=== PATIENT | female | born 2000 | race American Indian/Alaskan Native ===

== ENCOUNTER 2019-06-09 04:35 | Emergency (ER) | payer MEDICAID ==
[2019-06-09 05:37] LABS: Bacteria,Urine 1+ /HPF (Negative); Bilirubin,Urine NEG (Negative); Blood,Urine LG (Negative); Color,Urine Yellow (Yellow); Mucus,Urine 1+ /HPF
[2019-06-09 06:08] LABS: Amphetamine Screen,Urine PRESUMPTIVE NEGATIVE; Benzodiazepines Screen,Urine PRESUMPTIVE NEGATIVE; Cannabinoid Screen,Urine PRESUMPTIVE NEGATIVE; Cocaine Screen,Urine PRESUMPTIVE NEGATIVE; Methadone Screen,Urine PRESUMPTIVE NEGATIVE; Opiate Screen,Urine PRESUMPTIVE NEGATIVE
[2019-06-09 06:13] LABS: BUN/Creatinine Ratio 12; Blood Urea Nitrogen 7 mg/dL (7-17); Calcium 9.3 mg/dL (8.4-10.2); Hemolysis Index 14
[2019-06-09 06:15] LABS: Basophils % (Auto) 0.3 % (0.0-1.8); Eosinophils % (Auto) 0.4 % (0.0-4.3); Hematocrit 31.7 % (30.3-42.9); Hemoglobin 10.5 gm/dl (10.1-14.3); Lymphocytes # (Auto) 1.2 K/mm3 (1.2-5.4); Lymphocytes % (Auto) 33.5 % (13.4-35.0); Mean Corpuscular HGB Conc 33 % (30-34); Mean Corpuscular Volume 92 fl (79-97); Monocytes # (Auto) 0.4 K/mm3 (0.0-0.8); Monocytes % (Auto) 10.2 % (0.0-7.3); Platelet Count 378 K/mm3 (140-440); Red Blood Count 3.47 M/mm3 (3.65-5.03); Red Cell Distribution Width 17.8 % (13.2-15.2)
--- NOTE | 2019-06-09 07:35 | Emergency Department Report ---
ED General Adult HPI - General Chief complaint: Psych Stated complaint: POORNIMA EVHAM Time Seen by Provider: 06/09/19 06:36 Source: patient Mode of arrival: Ambulatory Limitations: No Limitations - History of Present Illness Initial comments: Patient reports she was walking outside in [facility] at approximately 0530. Reports she was walking back to [facility] which she reports takes about 1 day in distance. Patient reports she was picked up by police for medical evaluation. Reports hx of depression, anxiety, and schizophrenia. Denies SI/HI. Denies trauma. Denies pain. Denies alcohol/drugs. -: hour(s) Severity scale (0 -10): 0 Improves with: none Worsens with: none Associated Symptoms: denies other symptoms - Related Data Home Medications Medication Instructions Recorded Confirmed Last Taken Mirtazapine [Remeron] 30 mg PO DAILY 10/11/16 10/11/16 Unknown risperiDONE [RisperDAL] 1 mg PO QHS 10/11/16 10/11/16 Unknown risperiDONE [RisperDAL] 1.25 mg PO QAM 10/11/16 10/11/16 Unknown Allergies Allergy/AdvReac Type Severity Reaction Status Date / Time No Known Allergies Allergy Verified 10/11/16 01:17 ED Review of Systems ROS: Stated complaint: EVAL Other details as noted in HPI Other: GENERAL: No weight change, fatigue, weakness, fever, chills, or night sweats SKIN: No changes in skin or hair, no itching, no rashes, no jaundice HEAD: No trauma, headache, or visual changes EYES: No blurriness, tearing, itching, acute visual loss, conjunctival discoloration, or scleral icterus EARS: No hearing loss, tinnitus, vertigo, or earache NOSE: No rhinorrhea, stuffiness, sneezing, itching, or epistaxis MOUTH: No bleeding gums, hoarseness, sore throat, or swelling CARDIAC: No new murmur, chest pain, palpitations, dyspnea on exertion, orthopnea, PND, or edema RESPIRATORY: No shortness of breath, wheeze, cough, sputum production, hemoptysis, pneumonia, asthma, bronchitis, or emphysema GI: No change in appetite, nausea, vomiting, dysphagia, change in bowel frequency, diarrhea, constipation, bleeding, hematemesis, melena, hematochezia, or abdominal pain URINARY: No frequency, urgency, polyuria, dysuria, hematuria, or incontinence GENITAL: Male: No penile discharge, testicular pain, testicular masses, or hernia Female: No change in menstrual regularity, no frequency or dysmenorrhea MUSCULOSKELETAL: No muscle weakness, joint stiffness, decrease in range of motion, redness, swelling NEUROLOGIC: No loss of sensation, numbness, tingling, tremors, weakness, paralysis, seizures HEMATOLOGIC: No anemia, easy bruising, bleeding, petechiae, or purpura ENDOCRINE: No hot or cold intolerance, sweating, polyuria, polydipsia or, polyphagia no thyroid problems PSYCHIATRIC: No change in mood, no anxiety, no depression ED Past Medical Hx - Past Medical History Previous Medical History?: Yes Hx Psychiatric Treatment: Yes (schizo) - Surgical History Past Surgical History?: No - Social History Smoking Status: Never Smoker Substance Use Type: None - Medications Home Medications: Home Medications Medication Instructions Recorded Confirmed Last Taken Type Mirtazapine [Remeron] 30 mg PO DAILY 10/11/16 10/11/16 Unknown History risperiDONE [RisperDAL] 1 mg PO QHS 10/11/16 10/11/16 Unknown History risperiDONE [RisperDAL] 1.25 mg PO QAM 10/11/16 10/11/16 Unknown History ED Physical Exam - General Limitations: No Limitations - Other Other exam information: GENERAL: Patient in no acute distress HEAD: Normocephalic, atraumatic EYES: PERRLA, EOM intact, no scleral icterus, no papilledema, no conjunctival hemorrhage, visual mccarthy and acuity wnl, EARS: No tenderness, discharge, tympanic membrane wnl NOSE: No tenderness, discharge, sinus tenderness MOUTH: No erythema, bleeding, exudate HEART: Regular rate and rhythm, no murmur, S1-S2 are auscultated, pulses are symmetric LUNGS: No wheezing, rales, rhonchi, bilateral breath sounds ABDOMEN: Normal bowel sounds, no tenderness, no rebound, no guarding, no masses, no CVA tenderness GENITOURINARY: Male: No rashes, ulcers, discharge, no scrotal masses, no hernia Female: External genitalia wnl. Cervix shows no discharge, bleeding, internal os closed. No adnexal tenderness, or mass MUSCULOSKELETAL: Normal joint range of motion, no redness, no swelling, no tenderness NEUROLOGIC: GCS 15, Alert and Oriented x3, Cranial nerves intact, normal sensation, normal strength, normal gait, no cerebellar deficit PSYCHIATRIC: No homicidal or suicidal ideation, no anxiety, no depression, no hallucinations SKIN: Skin is warm and dry, no wounds, no rashes ED Course Vital Signs 06/09/19 06/09/19 06/09/19 04:39 04:48 05:25 Temperature 98.2 F 98.2 F Pulse Rate 105 H 106 H Respiratory 18 18 17 Rate Blood Pressure 121/77 121/77 Blood Pressure [Right] O2 Sat by Pulse 100 100 Oximetry 06/09/19 06/09/19 06:16 10:00 Temperature 98.2 F Pulse Rate 84 72 Respiratory 18 16 Rate Blood Pressure Blood Pressure 110/62 125/78 [Right] O2 Sat by Pulse 100 Oximetry ED Medical Decision Making - Lab Data Result diagrams: 06/09/19 05:31 06/09/19 05:31 Laboratory Results - last 24 hr 06/09/19 06/09/19 06/09/19 05:18 05:18 05:31 WBC 3.5 L RBC 3.47 L Hgb 10.5 Hct 31.7 MCV 92 MCH 30 MCHC 33 RDW 17.8 H Plt Count 378 Lymph % (Auto) 33.5 [place] % (Auto) 10.2 H Eos % (Auto) 0.4 Baso % (Auto) 0.3 Lymph # 1.2 [place] # 0.4 Eos # 0.0 Baso # 0.0 Seg Neutrophils % 55.6 Seg Neutrophils # 1.9 Sodium Potassium Chloride Carbon Dioxide Anion Gap BUN Creatinine Estimated GFR BUN/Creatinine Ratio Glucose Calcium HCG, Qual Urine Color Yellow Urine Turbidity Cloudy Urine pH 5.0 Ur Specific [place] 1.025 Urine Protein 30 mg/dl Urine Glucose (UA) Neg Urine Ketones 80 Urine Blood Lg Urine Nitrite Neg Urine Bilirubin Neg Urine Urobilinogen 2.0 Ur Leukocyte Esterase Sm Urine WBC (Auto) 8.0 H Urine RBC (Auto) 18.0 U Epithel Cells (Auto) 26.0 H Urine Bacteria (Auto) 1+ Urine Mucus 1+ Salicylates Urine Opiates Screen Presumptive negative Urine Methadone Screen Presumptive negative Acetaminophen Ur Barbiturates Screen Presumptive negative Ur Phencyclidine Scrn Presumptive negative Ur Amphetamines Screen Presumptive negative U Benzodiazepines Scrn Presumptive negative Urine Cocaine Screen Presumptive negative U Marijuana (THC) Screen Presumptive negative Drugs of Abuse Note Disclamer Plasma/Serum Alcohol 06/09/19 06/09/19 06/09/19 05:31 05:31 05:31 WBC RBC Hgb Hct MCV MCH MCHC RDW Plt Count Lymph % (Auto) [place] % (Auto) Eos % (Auto) Baso % (Auto) Lymph # [place] # Eos # Baso # Seg Neutrophils % Seg Neutrophils # Sodium 140 Potassium 3.5 L Chloride 103.1 Carbon Dioxide 23 Anion Gap 17 BUN 7 Creatinine 0.6 L Estimated GFR > 60 BUN/Creatinine Ratio 12 Glucose 99 Calcium 9.3 HCG, Qual Urine Color Urine Turbidity Urine pH Ur Specific [place] Urine Protein Urine Glucose (UA) Urine Ketones Urine Blood Urine Nitrite Urine Bilirubin Urine Urobilinogen Ur Leukocyte Esterase Urine WBC (Auto) Urine RBC (Auto) U Epithel Cells (Auto) Urine Bacteria (Auto) Urine Mucus Salicylates < 0.3 L Urine Opiates Screen Urine Methadone Screen Acetaminophen < 5.0 L Ur Barbiturates Screen Ur Phencyclidine Scrn Ur Amphetamines Screen U Benzodiazepines Scrn Urine Cocaine Screen U Marijuana (THC) Screen Drugs of Abuse Note Plasma/Serum Alcohol 06/09/19 07 05:31 05:31 WBC RBC Hgb Hct MCV MCH MCHC RDW Plt Count Lymph % (Auto) [place] % (Auto) Eos % (Auto) Baso % (Auto) Lymph # [place] # Eos # Baso # Seg Neutrophils % Seg Neutrophils # Sodium Potassium Chloride Carbon Dioxide Anion Gap BUN Creatinine Estimated GFR BUN/Creatinine Ratio Glucose Calcium HCG, Qual Negative Urine Color Urine Turbidity Urine pH Ur Specific [place] Urine Protein Urine Glucose (UA) Urine Ketones Urine Blood Urine Nitrite Urine Bilirubin Urine Urobilinogen Ur Leukocyte Esterase Urine WBC (Auto) Urine RBC (Auto) U Epithel Cells (Auto) Urine Bacteria (Auto) Urine Mucus Salicylates Urine Opiates Screen Urine Methadone Screen Acetaminophen Ur Barbiturates Screen Ur Phencyclidine Scrn Ur Amphetamines Screen U Benzodiazepines Scrn Urine Cocaine Screen U Marijuana (THC) Screen Drugs of Abuse Note Plasma/Serum Alcohol < 0.01 - Medical Decision Making Patient comfortable. Updated with results. Mental behavioral health evaluated patient and reports patient clear for discharge with outpatient follow up. Plan discharge with outpatient follow up. Return if any worsening. Critical care attestation.: If time is entered above; I have spent that time in minutes in the direct care of this critically ill patient, excluding procedure time. ED Disposition Clinical Impression: Encounter for medical screening examination Disposition: DC-01 TO HOME OR SELFCARE Is pt being admited?: No Condition: Stable Instructions: Schizophrenia (ED) Referrals: LIZBETH GAUTHIER MD [Primary Care Provider] - 2-3 Days [facility] [Outside] - 2-3 Days Time of Disposition: 07:35
[2019-06-09 12:20] VITALS: BP 125/78
== END 2019-06-09 12:00 | disposition home or self-care (01) ==
LOC: ED 04:35 → EEVIPCON 04:35 → ED 12:00
DX: Z00.00 Encounter for general adult medical examination without abnormal findings (principal); F32.9 Major depressive disorder, single episode, unspecified; F41.9 Anxiety disorder, unspecified; F20.9 Schizophrenia, unspecified; Z79.899 Other long term (current) drug therapy
CPT/HCPCS: 36415; 80048; 80307; 81001; 84703; 85025; 99284; G0480; 80320

== ENCOUNTER 2020-04-27 08:56 | Outpatient (CLI) | payer MEDICAID ==
[2020-04-27 10:48] VITALS: BP 118/71
== END 2020-04-27 12:00 | disposition home or self-care (01) ==
LOC: TRG 08:56 → APU 08:57 → TRG 12:00
PROVIDERS: ATTEND Obstetrics & Gynecology
DX: O47.1 False labor at or after 37 completed weeks of gestation (principal); Z3A.39 39 weeks gestation of pregnancy
CPT/HCPCS: 59025

== ENCOUNTER 2021-04-17 01:58 | Outpatient (CLI) | payer MEDICAID ==
[2021-04-17 03:47] VITALS: BP 105/61
== END 2021-04-17 03:40 | disposition home or self-care (01) ==
LOC: TRG 01:58 → APU 02:37 → TRG 03:40
PROVIDERS: ATTEND Obstetrics & Gynecology
DX: O46.93 Antepartum hemorrhage, unspecified, third trimester (principal); R10.2 Pelvic and perineal pain; Z3A.30 30 weeks gestation of pregnancy
CPT/HCPCS: 59025

== ENCOUNTER 2021-06-30 07:00 | Inpatient (IN) | payer MEDICAID ==
[2021-06-30] MEDS ORDERED: METHYLERGONOVINE MALEATE 0.2 MG/ML VIAL IM PRN ×2 (07:31→08:30)
[2021-06-30] MEDS ORDERED: fentaNYL 100 MCG/2 ML INJ IV PRN ×2 (07:31→08:30)
[2021-06-30] MEDS ORDERED: ACETAMINOPHEN 325 MG TAB PO PRN ×2 (07:31→08:30)
[2021-06-30] MEDS ORDERED: CARBOPROST TROMETHAMINE 250 MCG/1 ML INJ IM PRN ×2 (07:31→08:02)
[2021-06-30] MEDS ORDERED: TERBUTALINE 1 MG/1 ML INJ SUB-Q PRN ×2 (07:31→08:02)
[2021-06-30] MEDS ORDERED: AMPICILLIN/NS 2 GM/100 ML 2 GM/100 ML BAG IV ONE ×2 (07:31→08:24)
[2021-06-30] MEDS ORDERED: miSOPROStol 200 MCG TAB PR PRN ×2 (07:31→08:02)
[2021-06-30] MEDS ORDERED: LOPERAMIDE 2 MG CAP PO PRN ×2 (07:31→08:02)
[2021-06-30] MEDS ORDERED: OXYTOCIN 10 UNIT/1 ML INJ IM PRN ×2 (07:31→08:02)
[2021-06-30] MEDS ORDERED: LIDOCAINE (2%) 20 MG/1 ML VIAL 20 ML MDV INFILTRATI NR ×2 (07:31→08:02)
[2021-06-30] MEDS ORDERED: ePHEDrine SULFATE 50 MG/1 ML INJ IV PRN ×3 (07:31→10:20)
[2021-06-30] MEDS ORDERED: LACTATED RINGERS 1,000 ML IV SCH ×2 (08:00→08:30)
[2021-06-30] MEDS ORDERED: BUTORPHANOL 2 MG/1 ML INJ IV PRN ×4 (08:00→09:30)
[2021-06-30] MEDS ORDERED: OXYTOCIN DRIP 30 UNITS/500 ML BAG IV SCH ×4 (08:00→09:00)
[2021-06-30] MEDS ORDERED: AMPICILLIN/NS 2 GM/100 ML 2 GM/100 ML BAG IV NR (08:24)
[2021-06-30] MEDS ORDERED: NalbUPHINE 10 MG/1 ML INJ IV PRN (08:30)
[2021-06-30] MEDS ORDERED: ONDANSETRON 4 MG/2 ML INJ IV PRN (08:30)
--- NOTE | 2021-06-30 08:43 | History and Physical Report ---
History of Present Illness Date of examination: 06/30/21 Date of admission: 06/30/2021 Chief complaint: Frequent painful ctxs History of present illness: 21 yo, , initiated care with [facility] at 19.6 weeks and only completed that one visit throughout the entire . Presents to [facility] with reports of frequent painful ctx. Was found to have advanced cervical dilation of 6 cms with a bulging bag of fluids. Reports +FM. Denies VB or LOF. Labs: O+, antibody unknown, GC/Chlamydia negative (12/19/20) Past History Past Medical History: asthma, other (ADHD; Autism; Biplar; Psychosis; Schizophrenia) Past Surgical History: no surgical history Family/Genetic History: other (Epilepsy) Social history: single, lives with family, full code. denies: smoking, alcohol abuse, prescription drug abuse - Obstetrical History Expected Date of Delivery: 07/01/21 Actual Gestation: 39 Week(s) 6 Day(s) : 2 Para: 1 Hx # Term Pregnancies: 1 Number of Pregnancies: 0 Spontaneous Abortions: 0 Induced : 0 Number of Living Children: 1 #1 Infant Gender: Female year: 2[age][birth year] Birthweight: 4.082 kg Method of Delivery: Vaginal Gestational age at delivery: 40 Complications: none Medications and Allergies Allergies Allergy/AdvReac Type Severity Reaction Status Date / Time mint AdvReac Severe Swelling Uncoded 04/09/20 18:54 onions AdvReac Severe Swelling Uncoded 04/09/20 18:54 pineapple AdvReac Severe Swelling Uncoded 04/09/20 18:54 Home Medications Medication Instructions Recorded Confirmed Last Taken Type Mirtazapine [Remeron] 30 mg PO DAILY 10/11/16 10/11/16 Unknown History risperiDONE [RisperDAL] 1 mg PO QHS 10/11/16 10/11/16 Unknown History risperiDONE [RisperDAL] 1.25 mg PO QAM 10/11/16 10/11/16 Unknown History Active Meds: Active Medications Acetaminophen (Acetaminophen 325 Mg Tab) 650 mg PO Q4H PRN PRN Reason: Pain, Mild (1-3) Butorphanol Tartrate (Butorphanol 2 Mg/1 Ml Inj) 2 mg IV Q2H PRN PRN Reason: Pain , Severe (7-10) Carboprost Tromethamine (Carboprost Tromethamine 250 Mcg/1 Ml Inj) 250 mcg IM ONCE PRN PRN Reason: Uterine Bleeding Stop: 07/01/21 08:01 Ephedrine Sulfate (Ephedrine Sulfate 50 Mg/1 Ml Inj) 10 mg IV Q2M PRN PRN Reason: Hypotension Fentanyl (Fentanyl 100 Mcg/2 Ml Inj) 100 mcg IV Q2H PRN PRN Reason: Pain,Severe (7-10) LABOR PAIN Oxytocin/Sodium Chloride (Pitocin/Ns 30 Unit/500ml) 30 units in 500 mls @ 2 mls/hr IV TITR MAGDIEL; Protocol Lactated Ringer's (Lactated Ringers) 1,000 mls @ 125 mls/hr IV DIRECT MAGDIEL Oxytocin/Sodium Chloride (Pitocin/Ns 30 Unit/500ml) 30 units in 500 mls @ 40 mls/hr IV TITR MAGDIEL; Protocol Ampicillin Sodium (Ampicillin/Ns 1 Gm/50 Ml) 1 gm in 50 mls @ 100 mls/hr IV Q4H MAGDIEL; Protocol Ampicillin Sodium (Ampicillin/Ns 2 Gm/100 Ml) 2 gm in 100 mls @ 100 mls/hr IV ONCE ONE; Protocol Stop: 06/30/21 09:23 Lidocaine (Lidocaine (2%) 20 Mg/1 Ml Vial 20 Ml Mdv) 20 ml INFILTRATI ONCE NR Stop: 06/30/21 11:00 Loperamide HCl (Loperamide 2 Mg Cap) 2 mg PO ONCE PRN PRN Reason: give with Hemabate Stop: 07/01/21 08:01 Methylergonovine Maleate (Methylergonovine Maleate 0.2 Mg/Ml Vial) 0.2 mg IM ONCE PRN PRN Reason: Uterine Bleeding Mineral Oil (Mineral Oil 30 Ml Oral Liqd) 30 ml PO QHS PRN PRN Reason: Constipation Misoprostol (Misoprostol 200 Mcg Tab) 800 mcg PA ONCE PRN PRN Reason: Uterine Bleeding Stop: 07/01/21 08:01 Nalbuphine HCl (Nalbuphine 10 Mg/1 Ml Inj) 10 mg IV Q2H PRN PRN Reason: Pain, Moderate (4-6) Ondansetron HCl (Ondansetron 4 Mg/2 Ml Inj) 4 mg IV Q8H PRN PRN Reason: Nausea And Vomiting Oxytocin (Oxytocin 10 Unit/1 Ml Inj) 10 unit IM ONCE PRN PRN Reason: Uterine Bleeding Stop: 07/01/21 08:01 Terbutaline Sulfate (Terbutaline 1 Mg/1 Ml Inj) 0.25 mg SUB-Q ONCE PRN PRN Reason: Hyperstimulation/Hypertonicity Stop: 07/01/21 08:01 Review of Systems All systems: negative Genitourinary: contractions - Vital Signs Vital signs: Vital Signs Pulse BP 102 H 106/75 06/30/21 07:33 06/30/21 07:33 Temp Pulse Resp BP Pulse Ox 97.6 F 74 16 114/56 97 06/30/21 07:53 06/30/21 08:29 06/30/21 07:53 06/30/21 07:48 06/30/21 08:29 - Physical Exam Breasts: Positive: normal Cardiovascular: Normal S1 Lungs: Positive: Normal air movement Abdomen: Positive: other (gravid) Genitourinary (Female): Positive: normal external genitalia Vagina: Positive: other (bloody show) Uterus: Positive: enlarged (S=D) - Obstetrical FHR: category 1 Uterine Contraction Monitor Mode: External Cervical Dilatation: 6 (bulging bag) Cervical Effacement Percentage: 60 station: -1 Uterine Contraction Frequency (min): 2-4 Uterine Contraction Pattern: Irregular Uterine Tone Measurement Phase: Resting Uterine Contraction Intensity: Moderate Results All other labs normal. Assessment and Plan - Patient Problems (1) Active labor at term Current Visit: Yes Status: Acute Plan to address problem: Admit to L&D lab panel Epidural as desired Anticipate (2) History of inadequate care Current Visit: Yes Status: Acute (3) GBS screening not performed Current Visit: Yes Status: Acute
[2021-06-30 09:16] LABS: Hemoglobin 7.4 gm/dl (10.1-14.3); Mean Corpuscular HGB Conc 32 % (30-34); Mean Corpuscular Volume 73 fl (79-97); Platelet Count 203 K/mm3 (140-440); Red Blood Count 3.17 M/mm3 (3.65-5.03)
[2021-06-30 09:21] LABS: Red Cell Distribution Width 21.5 % (13.2-15.2)
[2021-06-30] MEDS ORDERED: NALOXONE 2 MG/2 ML INJ IV PRN (10:20)
--- NOTE | 2021-06-30 10:39 | Procedure Note ---
OB Delivery Note - Delivery Date of Delivery: 06/30/21 (1018) Surgeon: ARELY PIERRE (CNM) Estimated blood loss: 300cc - Vaginal Delivery presentation: vertex Delivery position: OA (NACHO) Intrapartum events: meconium (term) Delivery induction: none Delivery augmentation: rupture of membranes (AROM @ 1015) Delivery monitor: external FHT, external uterine Route of delivery: Delivery placenta: spontaneous (lin, 1022) Delivery cord: 3 umbilical vessels Episiotomy: none Delivery laceration: none Anesthesia: epidural Delivery comments: of viable, crying female infant placed directly to maternal abdomen. Cord double clamped, cut by FOB after cessation of pulsation. Cord blood collected sent to lab. Placenta spontaneously delivered, disposed per hospital policy. Uterus firm @ U-2, hemostasis maintained. Perineum intact. Mother and baby safe, stable and left in care of RN. - A at 1 minute: 8 at 5 minutes: 9 Infant Gender: Female (Weight: 2960 gms (6lbs 8 ozs) 20 inches)
[2021-06-30 10:58] LABS: Hepatitis C Virus Antibody Non-Reactive (NonReactive)
[2021-06-30] MEDS ORDERED: LANOLIN/ZINC/DIMETHICONE (LANSINOH) 7 GM TP PRN (11:00)
[2021-06-30] MEDS ORDERED: fentaNYL-BUPIV 2 MCG/ML-0.125% 200 MCG/100 ML BAG EPIDURAL SCH (11:00)
[2021-06-30] MEDS ORDERED: WITCH HAZEL/ GLYCERIN PAD TP PRN (11:00)
[2021-06-30] MEDS ORDERED: diphenhydrAMINE 25 MG CAP PO PRN (11:00)
[2021-06-30] MEDS ORDERED: PROMETHAZINE 25 MG TAB PO PRN (11:30)
[2021-06-30] MEDS ORDERED: oxyCODONE /ACETAMINOPHEN 5-325MG TAB PO PRN (11:30)
[2021-06-30] MEDS ORDERED: PHYTONADIONE 1 MG/0.5 ML *NICU*INJ ONE (12:05)
[2021-06-30] MEDS ORDERED: AMPICILLIN/NS 1 GM/50 ML 1 GM/50 ML BAG IV SCH (13:00)
[2021-06-30] MEDS ORDERED: AMMONIA INHALANT IH ONE (13:28)
[2021-06-30] MEDS: IBUPROFEN 600 MG TAB PO SCH ×2 (18:52→23:15)
[2021-06-30 18:54] LABS: Hematocrit 19.5 % (30.3-42.9); Hemoglobin 5.9 gm/dl (10.1-14.3)
[2021-06-30] MEDS ORDERED: SODIUM CHLORIDE 0.9% 500 ML 500 ML IV SCH (19:13)
[2021-06-30] MEDS ORDERED: diphenhydrAMINE 50 MG CAP PO ONE (20:00)
[2021-06-30] MEDS ORDERED: ACETAMINOPHEN 325 MG TAB PO ONE (20:00)
[2021-06-30] MEDS ORDERED: MAGNESIUM HYDROXIDE (MOM) ORAL LIQD UDC PO PRN (22:00)
[2021-06-30] MEDS ORDERED: MINERAL OIL 30 ML ORAL LIQD PO PRN ×2 (22:00)
[2021-07-01] MEDS: IBUPROFEN 600 MG TAB PO SCH ×4 (05:38→23:50)
--- NOTE | 2021-07-01 08:03 | Progress Note ---
Assessment and Plan - Patient Problems (1) History of inadequate care Current Visit: Yes Status: Acute (2) Status post normal vaginal delivery Current Visit: Yes Status: Acute Plan to address problem: Continue routine PP orders Anticipate d/c home tomorrow if stable (3) Severe anemia Current Visit: Yes Status: Acute Plan to address problem: S/P 2 units PRBCs last night Repeat H/H pending Continue daily oral iron supplementation as directed Increase iron rich foods into diet Subjective - Subjective Date of service: 07/01/21 Principal diagnosis: S/P ; severe anemia Interval history: 21 yo, , initiated care with [facility] at 19.6 weeks and only completed that one visit throughout the entire . Presents to [facility] with reports of frequent painful ctx. Was found to have advanced cervical dilation of 6 cms with a bulging bag of fluids. Reports +FM. Denies VB or LOF. Labs: O+, antibody unknown, GC/Chlamydia negative (12/19/20) Patient reports: appetite normal, voiding normally, pain well controlled, flatus, no ambulating normally (pt is unstable on her feet, advised to call for assitance prior to ambulating) : doing well, bottle feeding Objective - Vital Signs Latest vital signs: Vital Signs Temp Pulse Resp BP BP Pulse Ox Pulse Ox 07/01/21 05:35 98 07/01/21 03:15 98 07/01/21 02:15 98.4 F 63 18 114/62 100 07/01/21 01:45 98.3 F 76 18 110/73 100 07/01/21 01:15 98.2 F 84 18 114/70 100 100 07/01/21 00:30 97.8 F 72 18 110/60 110/60 95 07/01/21 00:00 98.6 F 67 18 110/67 100 06/30/21 23:30 98.4 F 67 18 106/67 100 06/30/21 23:15 100 06/30/21 23:00 98.3 F 60 18 107/60 100 06/30/21 22:30 98.8 F 77 18 122/52 100 06/30/21 22:00 98.5 F 66 18 107/62 100 06/30/21 21:45 98.8 F 68 18 116/68 100 100 06/30/21 21:42 98.8 F 68 18 116/68 06/30/21 21:12 98.4 F 70 18 119/64 100 06/30/21 20:00 100 06/30/21 18:07 98 06/30/21 16:06 98 06/30/21 16:00 97.6 F 69 16 116/50 06/30/21 14:03 98 06/30/21 12:15 98 06/30/21 11:50 59 L 97 06/30/21 11:45 59 L 97 06/30/21 11:41 58 L 125/86 06/30/21 11:40 63 97 06/30/21 11:35 65 97 06/30/21 11:30 67 97 06/30/21 11:27 65 123/84 06/30/21 11:25 64 97 06/30/21 11:20 69 98 06/30/21 11:19 69 93 06/30/21 11:15 74 95 06/30/21 11:12 72 132/60 06/30/21 11:11 65 94 06/30/21 11:10 63 97 06/30/21 11:05 74 97 06/30/21 11:03 79 92 06/30/21 11:00 79 97 06/30/21 10:56 81 111/79 90 06/30/21 10:55 75 96 06/30/21 10:50 76 97 06/30/21 10:45 80 96 06/30/21 10:41 83 99/53 85 06/30/21 10:40 83 96 06/30/21 10:35 85 97 06/30/21 10:30 84 97 06/30/21 10:29 86 93 06/30/21 10:26 69 118/55 06/30/21 10:25 74 97 06/30/21 10:23 67 114/54 93 06/30/21 10:20 73 97 06/30/21 10:15 81 97 06/30/21 10:13 68 92 06/30/21 10:10 75 96 06/30/21 10:09 63 156/73 06/30/21 10:05 99 H 140/72 97 06/30/21 10:00 115 H 98 06/30/21 09:57 104 H 137/65 06/30/21 09:55 121 H 95 06/30/21 09:51 103 H 140/60 06/30/21 09:50 121 H 94 06/30/21 09:44 111 H 99 06/30/21 09:39 107 H 96 06/30/21 09:34 79 99 06/30/21 09:33 117 H 93 06/30/21 09:29 77 98 06/30/21 09:24 70 95 06/30/21 09:19 88 93 06/30/21 09:18 72 93 06/30/21 09:14 77 97 06/30/21 09:13 96 H 92 06/30/21 09:09 103 H 95 06/30/21 09:07 96 H 93 06/30/21 09:04 90 93 06/30/21 09:02 91 H 93 06/30/21 09:00 16 06/30/21 08:59 67 97 06/30/21 08:58 96 H 112/83 06/30/21 08:56 81 92 06/30/21 08:54 110 H 97 06/30/21 08:49 110 H 96 06/30/21 08:48 69 93 06/30/21 08:44 90 96 06/30/21 08:42 68 88 06/30/21 08:39 71 96 06/30/21 08:36 106 H 94 06/30/21 08:34 89 95 06/30/21 08:29 74 97 06/30/21 08:24 83 97 06/30/21 08:19 73 97 06/30/21 08:14 96 H 98 06/30/21 08:09 83 98 06/30/21 08:04 83 93 06/30/21 08:00 98 06/30/21 07:59 89 97 Intake and Output 06/30/21 06/30/21 07/01/21 15:59 23:59 07:59 Intake Total 640 240 Output Total 800 600 Balance -800 40 240 Intake: Oral 640 Intake, Free Water 240 Blood Product 0 0 Leukoreduced Rbc Part 2 0 0 Unit [id number] Leukoreduced Rbc Part 2 0 Unit [id number] Output: Urine 800 600 Void 800 600 Other: Total, Intake Amount 320 Total, Output Amount 800 600 # Voids Void 3 1 Estimated Blood Loss 300 - Exam Breasts: Present: normal Cardiovascular: Present: Regular rate Lungs: Present: Normal air movement Abdomen: Present: soft Uterus: Present: firm, fundal height below umbilicus (U-3) Extremities: Present: normal Deep Tendon Reflex Grade: Normal +2 - Labs Labs: Abnormal lab results 06/30/21 06/30/21 06/30/21 Range/Units 08:54 08:54 18:28 RBC 3.17 L (3.65-5.03) M/mm3 Hgb 7.4 L 5.9 L* (10.1-14.3) gm/dl Hct 23.0 L 19.5 L* (30.3-42.9) % MCV 73 L (79-97) fl MCH 23 L (28-32) pg RDW 21.5 H (13.2-15.2) % Crossmatch See Detail
[2021-07-01 09:16] LABS: Hematocrit 24.8 % (30.3-42.9); Hemoglobin 8.1 gm/dl (10.1-14.3)
[2021-07-01] MEDS: PRENATAL VIT27-FE FUMARATE-FOLIC ACID VIT TAB PO SCH (10:26)
[2021-07-01] MEDS: FERROUS SULFATE 325 MG TAB PO SCH ×2 (10:26→22:20)
--- NOTE | 2021-07-01 12:49 | Post Anesthesia Evaluation ---
- Post Anesthesia Evaluation Patient Participated: Yes Airway Patent: Yes Stable Respiratory Function: Yes Nausea/Vomiting: No Temp > 96.8F: Yes Pain Manageable: Yes Adequeate Hydration: Yes Anesthesia Complications: No Block Receding Appropriately: Yes
[2021-07-02] MEDS: IBUPROFEN 600 MG TAB PO SCH (06:05)
--- NOTE | 2021-07-02 08:31 | Progress Note ---
Assessment and Plan A: PPD#2 s/p at term Anemia s/p 2 units PRBCs Insufficient Care P: Routine care Discharge today with follow up in 4 wks Subjective - Subjective Date of service: 07/02/21 Principal diagnosis: S/P ; severe anemia Interval history: No overnight events. Pt feeling well. Patient reports: appetite normal, voiding normally, pain well controlled, ambulating normally [place]: doing well Objective - Vital Signs Latest vital signs: Vital Signs Temp Pulse Resp BP BP Pulse Ox Pulse Ox 07/02/21 07:37 98.2 F 75 16 109/49 99 07/02/21 00:30 98 F 76 16 102/52 98 07/01/21 20:20 98 07/01/21 16:15 97.8 F 60 20 112/60 07/01/21 08:50 0 L Intake and Output 07/01/21 07/02/21 07/02/21 22:59 06:59 14:59 Intake Total 680 420 Balance 680 420 Intake: Oral 680 Intake, Free Water 420 Other: Total, Intake Amount 320 # Voids Void 1 1 - Exam Breasts: Present: deferred Abdomen: Present: soft Uterus: Present: fundal height below umbilicus Extremities: Present: normal - Labs Labs: Abnormal lab results 07/01/21 Range/Units 08:44 Hgb 8.1 L (10.1-14.3) gm/dl Hct 24.8 L (30.3-42.9) %
--- NOTE | 2021-07-02 08:32 | Discharge Summary ---
Providers - Providers Date of Admission: 06/30/21 07:01 Date of discharge: 07/02/21 Attending physician: ROSANGELA FINK Primary care physician: ROSANGELA FINK Hospitalization Reason for admission: active labor Delivery: Procedure details: Please see delivery note. Episiotomy: none Laceration: none Other procedures: none complications: none Discharge diagnosis: IUP at term delivered Lovilia baby: female Hospital course: Patient was admitted in active labor and went on to have a spontaneous vaginal delivery which she tolerated well. Her course was complicated by acute on chronic anemia and she received 2 units of packed red blood cells with appropriate rise in her hemoglobin and hematocrit. She met discharge criteria on post day #2. She will follow-up in the office in 4 weeks. Condition at discharge: Stable Disposition: -01 TO HOME OR SELFCARE - Discharge Diagnoses (1) Term of female Status: Acute (2) Insufficient care Status: Acute Qualifiers: Trimester: third trimester Qualified Code(s): O09.33 - Supervision of with insufficient care, third trimester (3) Acute on chronic anemia Status: Acute (4) Severe anemia Status: Acute (5) Status post normal vaginal delivery Status: Acute Plan - Discharge Medications Prescriptions: Docusate Sodium [Colace] 100 mg PO BID PRN #60 capsule PRN Reason: Constipation Ferrous Sulfate [Feosol 325 MG tab] 325 mg PO TID #90 tablet Ibuprofen [Motrin] 600 mg PO Q6H PRN #30 tablet PRN Reason: Pain - Provider Discharge Summary Activity: routine, no sex for 6 weeks, no heavy lifting 4 weeks, no strenuous exercise Diet: routine Instructions: routine Additional instructions: [] Smoking cessation referral if applicable(refer to patient education folder for contact #) [] Refer to [facility] Booklet Call your doctor immediately for: * Fever > 100.5 * Heavy vaginal bleeding ( >1 pad per hour) * Severe persistent headache * Shortness of breath * Reddened, hot, painful area to leg or breast * Drainage or odor from incision. * Keep incision clean and dry at all times and follow doctor's instructions regarding bathing/showering - Follow up plan Follow up: ARELY PIERRE CNM [Advanced Practice Nurse] - 08/02/21 (please schedule appt )
[2021-07-02] MEDS: FERROUS SULFATE 325 MG TAB PO SCH (10:29)
[2021-07-02] MEDS: PRENATAL VIT27-FE FUMARATE-FOLIC ACID VIT TAB PO SCH (10:29)
[2021-07-02 11:38] VITALS: BP 107/54
== END 2021-07-02 12:45 | disposition home or self-care (01) | DRG 775 ==
LOC: TRG 07:00 → LD 07:00 → APU 07:01 → LD 07:01 → TRG 08:02 → OB 12:27
PROVIDERS: ADMIT Obstetrics & Gynecology; ATTEND Obstetrics & Gynecology
PROC: 3E0R3BZ Introduction of Anesthetic Agent into Spinal Canal, Percutaneous Approach (ICD-10-PCS; principal; 2021-06-30)
PROC: 10E0XZZ Delivery of Products of Conception, External Approach (ICD-10-PCS; 2021-06-30)
PROC: 00HU33Z Insertion of Infusion Device into Spinal Canal, Percutaneous Approach (ICD-10-PCS; 2021-06-30)
PROC: 30233N1 Transfusion of Nonautologous Red Blood Cells into Peripheral Vein, Percutaneous Approach (ICD-10-PCS; 2021-07-01)
DX: O77.0 Labor and delivery complicated by meconium in amniotic fluid (principal); O99.52 Diseases of the respiratory system complicating childbirth; Z37.0 Single live birth; O99.344 Other mental disorders complicating childbirth; Z20.822 Contact with and (suspected) exposure to COVID-19; F90.9 Attention-deficit hyperactivity disorder, unspecified type; F84.0 Autistic disorder; O99.02 Anemia complicating childbirth; F29 Unspecified psychosis not due to a substance or known physiological condition; F20.9 Schizophrenia, unspecified; Z82.0 Family history of epilepsy and other diseases of the nervous system; Z91.018 Allergy to other foods; Z3A.39 39 weeks gestation of pregnancy; Z79.899 Other long term (current) drug therapy; J45.909 Unspecified asthma, uncomplicated
CPT/HCPCS: 36415; 85014; 85018; 85027; 86592; 86706; 86762; 86803; 86850; 86900; 86901; 86920; 87806; G0378; J0290; J0595; J3010; J7040; P9016; U0003